=== PATIENT | female | born 1955 | race American Indian/Alaskan Native ===

== ENCOUNTER 2019-08-26 07:28 | Day surgery (SDC) | payer MEDICARE ==
--- NOTE | 2019-08-25 19:10 | History and Physical Report ---
History of Present Illness Date of examination: 08/26/19 Chief complaint: Postmenopausal Bleeding History of present illness: Pt is a 64 year old female presents for surgical evaluation of postmenopausal bleeding after inability to perform in-office biopsy. Past History Past Medical History: hypertension Past Surgical History: cholecystectomy, CANDLE CUTTER/uterine surgery (Left ovarian cystectomy ), D&C CANDLE CUTTER History: fibroids, gonorrhea (remote history ) Family/Genetic History: diabetes, heart disease, hypertension, stroke Social history: no significant social history - Obstetrical History : 4 Para: 2 Hx # Term Pregnancies: 2 Number of Pregnancies: 0 Spontaneous Abortions: 0 Induced : 2 Number of Living Children: 2 Medications and Allergies Allergies Allergy/AdvReac Type Severity Reaction Status Date / Time No Known Allergies Allergy Unverified 08/20/19 11:11 Home Medications Medication Instructions Recorded Confirmed Last Taken Type FLUoxetine [PROzac] 20 mg PO QDAY 08/20/19 08/20/19 Unknown History Zolpidem [Ambien] 10 mg PO QHS 08/20/19 08/20/19 Unknown History Review of Systems All systems: negative - Physical Exam Breasts: Positive: deferred Cardiovascular: Regular rate Lungs: Positive: Clear to auscultation Abdomen: Positive: soft (obese ) Extremities: Positive: normal Results All other labs normal. Assessment and Plan A: Postmenopausal Bleeding Morbid Obesity Hypertension Inability to tolerate in office biopsy P: Proceed with Hysteroscopy, Myosure endometrial sampling and other indicated procedures Clearance on chart
[~2019-08-26 07:28] MED LIST: LACTATED RINGERS 1,000 ML IV SCH; ceFAZolin/Water 2 GM/20 ML 2 GM/20 ML SYRINGE IV NR
--- NOTE | 2019-08-26 08:09 | Anesthesia Consultation ---
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
[2019-08-26] MEDS ORDERED: hydrALAZINE 20 MG/1 ML INJ IV PRN (08:10)
--- NOTE | 2019-08-26 08:10 | Anesthesia Day of Surgery ---
Anesthesia Day of Surgery - Day of Surgery Patient Examined: Yes Patient H&P Reviewed: Yes Patient is NPO: Yes
[2019-08-26] MEDS ORDERED: MIDAZOLAM 2 MG/2 ML INJ IV NR (08:21)
[2019-08-26] MEDS ORDERED: FAMOTIDINE 20 MG/2 ML INJ IV NR (08:21)
[2019-08-26 09:03] LABS: Hematocrit 47.8 % (30.3-42.9); Hemoglobin 15.4 gm/dl (10.1-14.3); Mean Corpuscular HGB Conc 32 % (30-34); Mean Corpuscular Volume 80 fl (79-97); Platelet Count 313 K/mm3 (140-440); Red Blood Count 5.97 M/mm3 (3.65-5.03); Red Cell Distribution Width 17.1 % (13.2-15.2)
[2019-08-26 09:16] LABS: BUN/Creatinine Ratio 22; Blood Urea Nitrogen 20 mg/dL (7-17); Calcium 9.2 mg/dL (8.4-10.2); Hemolysis Index 9
[2019-08-26] MEDS ORDERED: HYDROmorphone 1 MG/1 ML INJ ONE (09:23)
[2019-08-26] MEDS ORDERED: LIDOCAINE MPF (2%) 20 MG/1 ML VIAL 5 ML ONE (09:24)
[2019-08-26] MEDS ORDERED: PROPOFOL 200 MG/20 ML VIAL IV ONE ×2 (09:24→09:48)
[2019-08-26] MEDS ORDERED: SODIUM CHLORIDE 0.9% IRRIG SOLN 2000 ML IR ONE (09:46)
[2019-08-26] MEDS ORDERED: SILVER NITRATE APPLICATOR 1 EA TP ONE ×2 (09:50→10:16)
--- NOTE | 2019-08-26 10:29 | Operative Report ---
Operative Report Operative Report: Date of procedure: August 26, 2019 Preoperative diagnosis: 1)Postmenopausal Bleeding Postoperative diagnosis: 1)Postmenopausal Bleeding 2) Endometrial Polyp Same Procedure: 1)Hysteroscopy 2)Myosure Endometrial Polypectomy Surgeon: Marielena Trujillo M.D. Findings: 1) Small anteverted uters 2) Large polyp occupying the entire endometrial cavity 3) Small sessile polyp on left posterior endometrium 4) Otherwise atrophic appearing endometrium Anesthesia: General with LMA Estimated blood loss: 25 mL Specimens: endometrial polyp and curettings to pathology Drains: None Complications: None Disposition: Stable to PACU Indications for procedure: Pt is a 64 year old female presents for surgical evaluation of postmenopausal bleeding after inability to perform in-office biopsy. Operation in detail: After the risks, benefits, alternatives and complications of the procedure were explained to the patient, she gave informed consent for the procedure. She was subsequently taken to the operating room and placed in the dorsal supine position with her IV noted to be running well. SCDs noted to be in place and functioning. General anesthesia was then induced without difficulty. The patient was in placed in dorsal lithotomy position and prepped and draped in normal sterile fashion. A timeout was performed. An exam under anesthesia was performed yielding a mobile anteverted uterus. A michelle catheter was placed to drain the bladder yielding clear urine. An open sided speculum was then placed into the vagina for adequate visualization of the cervix. The anterior lip of the cervix was then grasped with a tenaculum for traction. The cervix was then dilated to a #21 with Pollack dilators. At this time, a hysteroscope was introduced to visualize the endometrial cavity which revealed a large polyp occupying the endometrial cavity, as well as a sessile polyp on left posterior endometrium. The Myosure device was used to excise the polyps as well as to sample the endometrium. All curettings were sent to pathology. All instruments were removed from the uterus atraumatically. At this time, the single-tooth tenaculum was removed from the cervix. Silver nitrate was placed over the tenaculum puncture sites for hemostasis. All instruments were removed from the vagina atraumatically and the procedure was ended. The michelle catheter was then removed atraumatically. The patient was placed into the dorsal supine position and extubated without difficulty. She was subsequently taken to the PACU in stable condition. She tolerated the procedure well. All counts were correct 2.
[2019-08-26] MEDS ORDERED: ONDANSETRON 4 MG/2 ML INJ ONE (10:31)
--- NOTE | 2019-08-26 10:34 | Short Stay Summary ---
Short Stay Documentation Date of service: 08/26/19 - History H&P: dictated Social history: no significant social history - Allergies and Medications Current Medications: Allergies No Known Allergies Allergy (Verified 08/26/19 05:17) Home Medications Medication Instructions Recorded Confirmed Last Taken Type FLUoxetine [PROzac] 20 mg PO QDAY 08/20/19 08/26/19 08/25/19 09:00 History Zolpidem [Ambien] 10 mg PO QHS 08/20/19 08/26/19 08/25/19 20:00 History Fenofibrate 160 mg PO QDAY 08/26/19 08/26/19 08/25/19 09:00 History Gabapentin [Neurontin] 800 mg PO 4XD 08/26/19 08/26/19 08/25/19 12:00 History Losartan/Hydrochlorothiazide 100 mg PO QDAY 08/26/19 08/26/19 08/25/19 09:00 History [Losartan-Hctz 50-12.5 mg Tab] QUEtiapine [SEROquel] 50 mg PO BID 08/26/19 08/26/19 08/25/19 15:00 History Simvastatin 40 mg PO QHS 08/26/19 08/26/19 08/25/19 19:00 History metFORMIN [Glucophage] 500 mg PO BID 08/26/19 08/26/19 08/25/19 09:00 History Active Medications Famotidine (Pepcid) 20 mg IV ONCE NR Stop: 08/26/19 12:00 Last Admin: 08/26/19 08:50 Dose: 20 mg Documented by: Fentanyl (Sublimaze) 50 mcg IV Q5MIN PRN PRN Reason: Pain , Severe (7-10) Stop: 08/26/19 22:00 Hydralazine HCl (Apresoline) 10 mg IV Q20M PRN PRN Reason: Hypertension Lactated Ringer's (Lactated Ringers) 1,000 mls @ 75 mls/hr IV DIRECT CARIE Last Admin: 08/26/19 08:50 Dose: 75 mls/hr Documented by: Cefazolin Sodium (Ancef/Sterile Water 2 Gm/20 Ml) 2 gm in 20 mls @ 80 mls/hr IV PREOP NR; Protocol Stop: 08/26/19 23:59 Midazolam HCl (Versed) 2 mg IV ONCE NR Stop: 08/26/19 12:00 Last Admin: 08/26/19 09:20 Dose: 2 mg Documented by: - Physical exam Breasts: deferred - Brief post op/procedure progress note Date of procedure: 08/26/19 Pre-op diagnosis: Postmenopausal Bleeding Post-op diagnosis: other (Same, Endometrial Polyp) Procedure: Hysteroscopy Myosure Endometrial Polypectomy Anesthesia: GETA (LMA) Findings: 1) Large polyp occupying the entire endometrial cavity 2) Small sessile polyp on left posterior wall 3) Otherwise atrophic appearing endometrium Surgeon: MARCUS TRUJILLO Estimated blood loss: minimal (25 mL) Pathology: list (endometrial currettings to patholgy) Specimen disposition: to lab Condition: stable - Hospital course Hospital course: Pt underwent hysteroscopy with Myosure endometrial polypectomy which she tolerated well. She was observed in the PACU until she met discharge criteria. She will follow up in the office in [address] Trujillo. - Disposition Condition at discharge: Stable Disposition: TO HOME OR SELFCARE - Discharge Diagnoses (1) Postmenopausal bleeding Status: Acute (2) Hypertension Status: Acute Qualifiers: Hypertension type: unspecified Qualified Code(s): I10 - Essential (primary) hypertension (3) Morbid obesity Status: Acute (4) Endometrial polyp Status: Acute Short Stay Discharge Plan Activity: other (Nothing in vagina, no tub baths or intercourse for 4 wks ) Weight Bearing Status: Full Weight Bearing Diet: regular Follow up with: KEN ALCANTARA MD [Primary Care Provider] - 7 Days MARCUS TRUJILLO MD [Staff Physician] - 7 Days Prescriptions: Ibuprofen [Motrin] 800 mg PO Q8HR PRN #30 tablet PRN Reason: Pain, Moderate (4-6) oxyCODONE /ACETAMINOPHEN [Percocet 5/325] 1 tab PO Q6HR PRN #30 tablet PRN Reason: Pain
[2019-08-26] MEDS: fentaNYL 100 MCG/2 ML INJ IV PRN ×2 (10:42→10:54)
[2019-08-26] MEDS ORDERED: oxyCODONE /ACETAMINOPHEN 5-325MG TAB PO PRN (11:11)
[2019-08-26 12:35] VITALS: BP 147/71
--- NOTE | 2019-08-26 15:22 | Post Anesthesia Evaluation ---
- Post Anesthesia Evaluation Patient Participated: Yes Airway Patent: Yes Stable Respiratory Function: Yes Nausea/Vomiting: No Temp > 96.8F: Yes Pain Manageable: Yes Adequeate Hydration: Yes Anesthesia Complications: No
== END 2019-08-26 12:20 | disposition home or self-care (01) ==
LOC: OR 07:28 → EDBD 09:15 → OR 12:20
PROVIDERS: ATTEND Obstetrics & Gynecology
DX: N95.0 Postmenopausal bleeding (principal); N84.0 Polyp of corpus uteri; I10 Essential (primary) hypertension; E66.01 Morbid (severe) obesity due to excess calories; E78.00 Pure hypercholesterolemia, unspecified; M19.90 Unspecified osteoarthritis, unspecified site; F32.9 Major depressive disorder, single episode, unspecified; Z79.899 Other long term (current) drug therapy; Z79.84 Long term (current) use of oral hypoglycemic drugs; Z68.42 Body mass index [BMI] 45.0-49.9, adult; Z90.49 Acquired absence of other specified parts of digestive tract; Z98.890 Other specified postprocedural states; Z72.89 Other problems related to lifestyle
CPT/HCPCS: 36415; 58558; 80048; 82962; 85027; 88305; A4217; J0360; J0690; J1170; J2250; J2405; J2704; J3010; J7120; C1782